=== PATIENT | female | born 1930 | race Caucasian/White ===

== ENCOUNTER 2019-04-29 07:21 | Outpatient (CLI) | payer MEDICARE, OTHER ==
[2019-04-29 15:40] LABS: #Eosinphils 0.3 thou/uL (0.0-0.7); #Lymphocytes 2.4 thou/uL (1.20-3.40); #Monocytes 1.1 thou/uL (0.11-0.59); %Basophils 0.2 % (0.0-1.0); %Eosinophils 2.3 % (0.0-10.0); %Lymphocytes 17.2 % (21.0-51.0); %Monocytes 7.7 % (0.0-10.0); %Neutrophils 72.5 % (42.0-75.0); Hemoglobin 13.2 g/dL (12.0-16.0); Mean Corpuscular HGB CONC 31.8 g/dL (32.0-36.0); Mean Corpuscular Hemoglobin 28.2 pg (27.0-31.0); Mean Corpuscular Volume 88.7 fL (78.0-98.0); Mean Platelet Volume 7.6 fL (7.4-10.4); Platelet Count 334 thou/uL (130-400); RBC Distribution Width 13.1 % (11.5-14.5); Red Blood Cell (RBC) Count 4.69 mill/uL (4.20-5.40); White Blood Cell (WBC) Count 13.9 thou/uL (4.8-10.8)
[2019-04-29 15:47] LABS: ALT (SGPT) 12 U/L (8-55); AST (SGOT) 13 U/L (5-34); Albumin 4.3 g/dL (3.4-4.8); Alkaline Phosphatase 66 U/L (40-110); Anion Gap 11 mmol/L (10-20); BUN (Urea Nitrogen) 19 mg/dL (9.8-20.1); Bilirubin, Total 0.3 mg/dL (0.2-1.2); Calc. Creatinine Clearance 0 mL/min (70-130); Calcium 10.1 mg/dL (7.8-10.44); Carbon Dioxide 29 mmol/L (23-31); Chloride 105 mmol/L (98-107); Estimated GFR-MDRD 52; Globulin 3.1 g/dL (2.4-3.5); Glucose 130 mg/dL (83-110); Potassium 3.7 mmol/L (3.5-5.1); Protein, Total 7.4 g/dL (6.0-8.3); Sodium 141 mmol/L (136-145)
== END 2019-04-29 07:22 | disposition home or self-care (01) ==
LOC: LABBT 07:21
PROVIDERS: ATTEND Surgery
DX: Z01.818 Encounter for other preprocedural examination (principal); K80.80 Other cholelithiasis without obstruction
CPT/HCPCS: 80053; 85025; 93005; 93010

== ENCOUNTER 2019-05-04 05:55 | Day surgery (SDC) | payer MEDICARE, OTHER ==
[2019-04-29 14:26] VITALS: BMI 25.0
[2019-05-04] MEDS ORDERED: Bupivacaine PF 0.5% 30 ML VIAL ONE (06:42)
[2019-05-04] MEDS ORDERED: Lidocaine 1% w/Epinephrine 1:100K 20 ML VIAL ONE (06:42)
[2019-05-04] MEDS ORDERED: Fentanyl 100 MCG/2 ML VIAL ONE ×3 (06:49→10:00)
[2019-05-04] MEDS ORDERED: SUGAMMADEX SODIUM 200 MG/2 ML VIAL ONE (06:49)
[2019-05-04] MEDS ORDERED: Iothalamate Meglumine 60% 50 ML VIAL FS ONE (08:01)
[2019-05-04] MEDS ORDERED: Rocuronium Bromide 10 MG/ML (10ML VIAL) ONE (10:16)
[2019-05-04] MEDS ORDERED: Ondansetron PF 4 MG/2 ML Vial ONE (10:16)
[2019-05-04] MEDS ORDERED: Lidocaine 1% PF 5 ML VIAL ONE (10:16)
[2019-05-04] MEDS ORDERED: Glycopyrrolate 0.2 MG/ML 5 ML SYRINGE ONE (10:16)
[2019-05-04] MEDS ORDERED: Dexamethasone 20 MG/5 ML VIAL ONE (10:16)
[2019-05-04] MEDS ORDERED: PROPOFOL 200 MG/20 ML VIAL ONE (10:16)
--- NOTE | 2019-05-04 10:41 | RAD ---
OPERATIVE CHOLANGIOGRAM: Date: 05/04/2019 HISTORY: Intraoperative film. FINDINGS: Two images presented for interpretation show filling of a nondilated common bile duct emptying into t he duodenum. No filling defects seen. IMPRESSION: Unremarkable operative cholangiogram. POS: AXEL
[2019-05-04] MEDS ORDERED: HYDROcodone/Acetaminophen 5/325 mg Tablet ONE (10:45)
--- NOTE | 2019-05-05 08:45 | OP ---
DATE OF PROCEDURE: 05/04/2019 PREOPERATIVE DIAGNOSIS: Acute cholecystitis. POSTOPERATIVE DIAGNOSIS: Acute cholecystitis. PROCEDURES PERFORMED: Laparoscopic cholecystectomy with intraoperative cholangiogram and drain placement. ANESTHESIA: General. ESTIMATED BLOOD LOSS: Minimal. COMPLICATIONS: None. SPECIMEN: Gallbladder. DESCRIPTION OF PROCEDURE: The patient was taken to the operating room and laid supine on the operating room table. After general anesthetic was obtained, the abdomen was prepped and draped in a sterile fashion. Curved incision was made below the umbilicus. Cautery was dissected down to and score the fascia. Abdominal cavity was entered bluntly using a Nataliya clamp. Holding stitch of PDS was placed on each side of fascia. Yudy trocar was placed. High-flow pneumoperitoneum was obtained. An upper midline 5 mm port and 2 right upper quadrant 5 mm ports were placed under direct visualization. The gallbladder was retracted from the gallbladder fossa. The peritoneum was opened anteriorly and posteriorly. The critical view triangle was seen showing only the cystic duct and cystic artery branching medial to lateral and no other branching structures. A clip was placed high on the cystic duct and a small ductotomy was made just proximal to that. A cholangiocatheter was brought in through a separate stab incision and placed in the cystic duct and a cholangiogram was performed, which showed good contrast flow into the duodenum without obstruction. Cholangiocatheter was removed and 2 clips were placed proximally and one distally and the cystic duct was cut using laparoscopic scissors. The cystic artery was taken using 2 clips proximally and one clip distally, cut using laparoscopic scissors. The gallbladder was retracted out of the gallbladder fossa using cautery, placed in an Endo Catch bag and brought out through the Yudy. There was no bleeding or bile in the liver bed. The right upper quadrant was irrigated using sterile solution. All port sites were infiltrated using local anesthetic. All ports were removed under camera visualization. Pneumoperitoneum was let down. PDS was used to close the fascial defect below the umbilicus. All incisions were closed using 4-0 Monocryl and Dermabond. The patient was sent to Recovery in stable condition. All instrument counts, needle counts, and lap counts were correct. ADDENDUM: Prior to removal of ports, a 19 round drain brought out through the right upper quadrant incision, sewn in place using a silk left in the liver in the hepatic bed. The patient was sent to Recovery in stable condition. All instrument counts, needle counts, and lap counts are correct. Job ID: [id number]
== END 2019-05-04 12:00 | disposition home or self-care (01) ==
LOC: SDC 05:55
PROVIDERS: ATTEND Surgery
PROC: 0FT44ZZ Resection of Gallbladder, Percutaneous Endoscopic Approach (ICD-10-PCS; principal; 2019-05-04)
PROC: BF101ZZ Fluoroscopy of Bile Ducts using Low Osmolar Contrast (ICD-10-PCS; 2019-05-04)
DX: K80.12 Calculus of gallbladder with acute and chronic cholecystitis without obstruction (principal); Z87.891 Personal history of nicotine dependence; Z79.82 Long term (current) use of aspirin; Z79.899 Other long term (current) drug therapy
CPT/HCPCS: 47532; 88304; J0690; J1100; J2001; J2405; J2704; J3010; S0020